=== PATIENT | male | born 1980 | race Caucasian/White ===

== ENCOUNTER 2017-12-30 00:30 | Emergency (ER) | payer OTHER ==
[~2017-12-30] VITALS: Ht 167.6 cm; Wt 86.2 kg
[2017-12-30 00:34] VITALS: BP 144/75
[2017-12-30] MEDS ORDERED: KETOROLAC 30 MG/ML VIAL IM ONE (00:45)
[2017-12-30 03:05] VITALS: BP 144/75
== END 2017-12-30 03:05 ==
LOC: MED 00:30
DX: Z02.89 Encounter for other administrative examinations (principal); S02.401A Maxillary fracture, unspecified side, initial encounter for closed fracture; S00.83XA Contusion of other part of head, initial encounter; S00.01XA Abrasion of scalp, initial encounter; X58.XXXA Exposure to other specified factors, initial encounter; Y93.89 Activity, other specified; Y92.89 Other specified places as the place of occurrence of the external cause; Y99.8 Other external cause status
CPT/HCPCS: 70450; 70486; 90471; 90715; 96372; 99284; J1885